=== PATIENT | male | born 1990 | race Caucasian/White ===

== ENCOUNTER 2020-03-12 23:13 | Emergency (ER) | payer SELFPAY ==
[~2020-03-12] VITALS: Ht 177.8 cm; Wt 68.0 kg
[2020-03-13 01:02] LABS: CHLORIDE 112 mEq/L (98-107)
[2020-03-13 01:06] LABS: ETHANOL BLOOD < 10 mg/dL
[2020-03-13 03:19] LABS: BASOPHILS % 0.3 % (0.0-2.0); HEMATOCRIT. 37.5 % (42.0-52.0); HEMOGLOBIN. 12.5 g/dL (14.0-18.0); LYMPHOCYTES % 7.7 % (20.0-50.0); MEAN CORPUSCULAR HEMOGLOBIN 30.4 pg (28.0-32.0); MEAN CORPUSCULAR VOLUME 90.9 fL (80.0-94.0); MEAN PLATELET VOLUME 8.6 fl (7.4-10.4); MONOCYTES % 7.7 % (2.0-8.0); NEUTROPHILS % 84.3 % (40.0-76.0); PLATELET 291 x1000/uL (130-400); RED BLOOD CELL COUNT 4.12 mill/uL (4.7-6.1); RED CELL DISTRIBUTION WIDTH 17.7 % (11.6-14.6)
[2020-03-13 05:13] VITALS: BP 114/68
== END 2020-03-13 05:15 | disposition home or self-care (01) ==
LOC: ER 23:13
DX: R53.1 Weakness (principal); E46 Unspecified protein-calorie malnutrition; D64.9 Anemia, unspecified; Z68.21 Body mass index [BMI] 21.0-21.9, adult; Z59.0 Homelessness
CPT/HCPCS: 36415; 80053; 80320; 83735; 85025; 86703; 93005; 99285; G0480